=== PATIENT | female | born 1960 | race Caucasian/White ===

== ENCOUNTER 2021-08-21 12:03 | Outpatient (CLI) | payer OTHER, MEDICAID, SELFPAY ==
--- NOTE | 2021-08-21 12:19 | XR_ITS ---
WS: [id number] Right hand, 2 views, 08/21/2021 Clinical Data: M06.9 - Rheumatoid arthritis, unspecified Comparison: None. Findings: No fractures or dislocations are seen. The soft tissues are unremarkable. There is mild o steoarthritic narrowing of the 2nd-5th right DIP joints. The PIP and right second through fifth MCP j oints are relatively normal with minimal osteoarthritic change of the right first MCP joint No periar ticular demineralization or calcifications are seen. 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
--- NOTE | 2021-08-21 12:19 | XR_ITS ---
WS: [id number] Left hand, 2 views, 08/21/2021 Clinical Data: M06.9 - Rheumatoid arthritis, unspecified Comparison: None. Findings: No fractures or dislocations are seen. The soft tissues are unremarkable. There is osteoarthritic blanca nge in the left first IP joint and the second through fifth DIP joints.The PIP and MCP joints joints are relatively normal. There is no periarticular demineralization or calcifications. XR/XR hand LT 2V [id number] Impression: 1. Osteoarthritic change of the left first IP and second through fifth PIP join ts. 2. Negative for periarticular demineralization or calcifications.
[2021-08-21 14:02] LABS: Hepatitis B Core AB, Total Non-Reactive (Nonreactive); Hepatitis B Surface Antigen Non-Reactive (Nonreactive); Hepatitis C Virus Antibody Non-Reactive (Nonreactive)
--- NOTE | 2021-08-21 14:33 | ECG_ITS ---
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 Measurements Intervals [place] Rate: 57 P: 12 PA: 181 QRS: 16 QRSD: 90 T: 32 QT: 420 QTc: 411 Interpretive Statements SINUS BRADYCARDIA No previous ECG available for comparison Electronically Signed On 08-22-2021 14:47:41 ROD POINTER by Jigna Iglesias M.D. [email or web address]
[2021-08-22 12:08] LABS: COMPLEMENT COMPONENT C3C 106 mg/dL (83-193); COMPLEMENT COMPONENT C4C 23 mg/dL (15-57)
[2021-08-22 14:07] LABS: Cyclic Citrullinated Peptide <16 UNITS
[2021-08-22 14:18] LABS: COMPLEMENT, TOTAL (CH50) >60 U/mL (31-60)
[2021-08-27 12:51] LABS: CENTROMERE B ANTIBODY <1.0 NEG AI (<1.0 NEG); JO-1 ANTIBODY <1.0 NEG AI (<1.0 NEG); RNP ANTIBODY <1.0 NEG AI (<1.0 NEG); SCL-70 ANTIBODY <1.0 NEG AI (<1.0 NEG); SJOGREN'S ANTIBODY (SS-A) <1.0 NEG AI (<1.0 NEG); SM ANTIBODY <1.0 NEG AI (<1.0 NEG); SS-B <1.0 NEG AI (<1.0 NEG)
[2021-08-28 12:52] LABS: ANA SCREEN, IFA POSITIVE (NEGATIVE)
[2021-08-28 14:29] LABS: THYROID PEROXIDASE ANTIBODIES 2 IU/mL (<9)
[2021-08-30 12:02] LABS: DNA AB (DS) CRITHIDIA,IFA NEGATIVE (NEGATIVE)
== END 2021-08-21 12:04 | disposition home or self-care (01) ==
PROVIDERS: PCP Internal Medicine; Visit Provider Internal Medicine
DX: M06.9 Rheumatoid arthritis, unspecified (principal); R76.8 Other specified abnormal immunological findings in serum
CPT/HCPCS: 36415; 73120; 83516; 86160; 86162; 86200; 86235; 86255; 86376; 86704; 86803; 87340; 93005